=== PATIENT | male | born 2000 | race Two or more races ===

== ENCOUNTER 2024-05-13 02:45 | Emergency (ER) | payer OTHER ==
[~2024-05-13] VITALS: Ht 185.4 cm; Wt 115.0 kg
[2024-05-13] MEDS: SODIUM CHLORIDE 0.9% 1,000 ML IV ONE (04:15)
[2024-05-13 06:09] VITALS: TEMP 98.2
[2024-05-13] MEDS: ONDANSETRON HCL 4 MG/2 ML VIAL IV ONE (06:09)
[2024-05-13 06:10] VITALS: O2SAT 98
[2024-05-13] MEDS: MORPHINE SULFATE 4 MG/ML SYR/VIAL IV ONE (06:10)
[2024-05-13] MEDS ORDERED: HYDR-4902 PO (06:17)
[2024-05-13 06:30] VITALS: BP 106/69; PULSE 69; RESP 15
== END 2024-05-13 07:19 | disposition home or self-care (01) ==
LOC: EDBD 02:45 → ER 02:45
DX: S42.352A Displaced comminuted fracture of shaft of humerus, left arm, initial encounter for closed fracture (principal); X58.XXXA Exposure to other specified factors, initial encounter; Y93.72 Activity, wrestling; Y92.89 Other specified places as the place of occurrence of the external cause; Y99.8 Other external cause status
CPT/HCPCS: 29105; 73060; 73090; 96361; 96374; 96375; 99284; J2270; J2405; J7030; 96360